=== PATIENT | male | born 1960 | race Caucasian/White ===

== ENCOUNTER 2017-12-04 14:22 | Emergency (ER) | payer OTHER ==
[~2017-12-04] VITALS: Ht 172.7 cm; Wt 95.3 kg
[2017-12-04 14:22] VITALS: BP_SYST 143
--- NOTE | 2017-12-04 14:52 | NUR ---
ER at bedside examining patient.
[2017-12-04] MEDS ORDERED: MORPHINE 2 MG/ML INJ. SYRINGE IM ONE (15:00)
[2017-12-04] MEDS ORDERED: ONDANSETRON 4 MG ODT TAB PO ONE (15:00)
--- NOTE | 2017-12-04 15:06 | NUR ---
MEDICATED WITH MORPHINE 2 MG IM FOR LEFT SIDE LOWER MOLAR PAIN.
--- NOTE | 2017-12-04 15:30 | NUR ---
Patient given written and verbal discharge instructions and verbalizes understanding. ER MD IBRAHIM discussed with patient the results and treatment provided. Patient in stable condition. ID arm band removed. IV catheter removed intact and dressing applied, no active bleeding. Rx of CLINDAMYCIN, NORCO given. Patient educated on pain management and to follow up with PMD. Pain Scale 3-4. Opportunity for questions provided and answered. Medication side effect fact sheet provided.
== END 2017-12-04 15:30 | disposition home or self-care (01) ==
LOC: SED 14:22
DX: K08.89 Other specified disorders of teeth and supporting structures (principal); R03.0 Elevated blood-pressure reading, without diagnosis of hypertension
CPT/HCPCS: 96372; 99283; J2270; Q0162